=== PATIENT | female | born 1960 | race Caucasian/White ===

== ENCOUNTER 2020-01-07 02:46 | Observation (INO) | payer BC, SELFPAY ==
[2020-01-07] VITALS (11 sets, daily range): BP systolic 119–153; BP diastolic 52–84; PULSE 57–91; RESP 16–18; TEMP 36.6–36.9; O2SAT 94–99; BMI 38.7; BMI 40.1
--- NOTE | 2020-01-07 02:41 | ECG_ITS ---
APPROVED REPORT Exam: Resting ECG HR:90 bpm ECG Measurements Heart Rate 90 AXES IN 150 P 53 QRSd 88 QRS 36 QT 386 T 51 QTc 472 <Conclusion> Normal sinus rhythm Normal ECG Electronically signed by : Jonathon Arias, 01/08/2020 07:13:03
--- NOTE | 2020-01-07 02:56 | XR_ITS ---
PROCEDURE: XR CHEST 2V CLINICAL HISTORY: chest pain COMPARISON: CT ABDPELW/O CT ABD PELVIS W/O CONTRAST from 06/09/2013 FINDINGS: Unremarkable cardiovascular structures. There is increased density in the paraspinal region in the lower chest consistent with hernia. Calcified granuloma is present left upper lobe. The lungs are clear without infiltrates, suspicious nodules, or pleural effusions. No acute bony abnormalities. IMPRESSION: Suspect small hiatal hernia otherwise negative. Dictated by: Kahlil Santoro MD 01/07/2020 05:43 Kahlil Santoro MD in [place] 01/07/2020 05:43
[2020-01-07 03:05] LABS: Basophils % 0.4 % (0.1-2.0); Eosinophils # 0.1 K/mm3 (0.0-0.4); Eosinophils % 1.4 % (0.1-12.0); Hemoglobin 14.8 g/dL (12.2-16.2); Lymphocytes # 2.4 K/mm3 (0.7-4.5); Lymphocytes % 39.6 % (10-50); Mean Corpuscular HGB Conc 33.7 g/dL (31.8-35.4); Mean Corpuscular Hemoglobin 32.3 pg (27.0-31.2); Mean Corpuscular Volume 95.9 fl (81-99); Monocytes # 0.4 K/mm3 (0.1-1.0); Neutrophils # 3.2 K/mm3 (1.8-7.8); Neutrophils % 52.6 % (37.0-80.0); Platelet Count 273 K/mm3 (142-424); Red Blood Count 4.59 M/mm3 (4.20-5.40)
[2020-01-07 03:11] LABS: Chloride 102 mmol/L (98-107); Potassium 3.9 mmoL/L (3.5-5.1); Sodium 141 mmol/L (136-145)
[2020-01-07 03:14] LABS: Anion Gap 12.9 mEq/L (5-15); Blood Urea Nitrogen 20 mg/dl (7-17); Calcium 10.5 mg/dl (8.4-10.2); Carbon Dioxide 30 mmol/L (22.0-30.0); Creatinine Clearance Estimated 122 mL/min (50-200); Estimated Glomerular Filt Rate 74 ml/min (>60); GFR (African American) 89 ML/MIN (>60); Glucose 144 mg/dl (74-100)
[2020-01-07 03:37] LABS: Troponin I < 0.01 ng/ml (0.00-0.034)
--- NOTE | 2020-01-07 04:14 | HMH.EDCP ---
ED Disposition Clinical Impression: Obesity (BMI 30-39.9) Chest pain Qualifiers: Chest pain type: precordial pain Qualified Code(s): R07.2 - Precordial pain Disposition: Admitted as Observation Condition on Discharge: Good Referrals: PCP,No [Primary Care Provider] - - Critical Care Critical Care Time: No Attestation: On 01/07/20, the high probability of a clinically significant, sudden or life threatening deterioration of the following system(s) required my full and direct attention, intervention and personal management. The time I documented below is in addition to time spent performing reported procedures but includes the following listed in this critical care notation. Medical Decision Making - Medical Records Medical records reviewed: Yes: I reviewed the patient's medical records. - Hermes Inquiry Pt receiving controlled substance: No Vital Signs: 01/07/20 02:47 01/07/20 03:17 01/07/20 04:13 Temperature 98.2 F Temperature Source Oral Pulse Rate [Left Radial] 91 H 78 75 Respiratory Rate 17 16 Blood Pressure [Right Arm] 153/81 H 128/74 138/75 Blood Pressure Mean [Right Arm] 105 92 96 Blood Pressure Source [Right Arm] Automatic Cuff Automatic Cuff Automatic Cuff Blood Pressure Position [Right Arm] Sitting 02 Sat by Pulse Oximetry 97 94 L 95 Oxygen Delivery Method Room Air Room Air Room Air - Lab Data Lab results reviewed: Yes: I reviewed the patient's lab results. Lab Results 01/07/20 02:55: WBC 6.0, RBC 4.59, Hgb 14.8, Hct 44.0, MCV 95.9, MCH 32.3 H, MCHC 33.7, RDW 13.0, Plt Count 273, MPV 7.0 L, Neut % (Auto) 52.6, Lymph % (Auto) 39.6, [place] % (Auto) 6.0, Eos % (Auto) 1.4, Baso % (Auto) 0.4, Neut # (Auto) 3.2, Lymph # (Auto) 2.4, [place] # (Auto) 0.4, Eos # (Auto) 0.1, Baso # (Auto) 0.0 01/07/20 02:55: Sodium 141, Potassium 3.9, Chloride 102, Carbon Dioxide 30, Anion Gap 12.9, BUN 20 H, Creatinine 0.80, Estimated Creat Clear 122, Estimated GFR 74, Est GFR ( Amer) 89, Glucose 144 H, Calcium 10.5 H, Troponin I < 0.01 Result diagrams: 01/07/20 02:55 01/07/20 02:55 Orders (Tests/Meds): ED MEDICATIONS Generic Name Dose Route Start Last Admin Trade Name Freq PRN Reason Stop Dose Admin Sodium Chloride 1,000 mls @ 999 mls/hr 01/07/20 03:00 01/07/20 03:01 Sod Chlor 0.9% 1000ml Bag IV 01/07/20 04:00 999 mls/hr .Q1H1M LAKESHA Administration ORDERS Category Date Time Status XR chest 2V Stat Exams 01/07/20 02:56 Taken Coronavirus 19 Swab (OUTPT) Routine Lab 01/07/20 04:33 Ordered Troponin I Q3H Lab 01/07/20 06:00 Ordered Troponin I Q3H Lab 01/07/20 09:00 Ordered - Radiology Data #1 Image(s): Chest Image Reviewed: Yes I reviewed the patient's radiology image Preliminary Findings: Normal/NAD - ECG Data Tracing #1 Normal Sinus Rhythm: Yes Ischemic changes: non-specific ST-T wave changes - Physician Consults Physician Consulted: henna Reason -: Admission Chest Pain HPI - General Chief Complaint: Chest Pain Stated Complaint: chest pain Time Seen by Provider: 01/07/20 03:10 Mode of Arrival: Ambulatory Source of Information: Patient, Medical Record Limitations: No Limitations Description of Symptoms (Recalled from ER Triage Doc. by RN): pt stated he has had intermitten chest pain at her epigastric region that radiates to her left shoulder and causes a warm sensation that moves up her neck. pt stated her had a heart attack a couple months ago and she has had felt a lot of anxiety about it sense. pt deneis any chest pain at this time. - History of Present Illness HPI narrative: having episodes of chest pain over the last 3 days which are new and rad to neck at times - no known heart disease - MD complaint: chest pain indicative of cardiac Onset (ago): day(s) Duration: intermittent Activity at onset: during rest Pain location: substernal Severity: moderate Quality: tightness Pain radiation: neck Risk Factors for CAD: Family Hx of C
[2020-01-07 05:29] LABS: Chol/HDL Ratio 6.1 (1-3.5); Cholesterol 287 mg/dl (140-200); HDL Cholesterol 47 mg/dl (40-60); Triglycerides 134 mg/dl (30-150); VLDL Cholesterol 27 mg/dL (0-40)
[2020-01-07 05:40] LABS: Direct LDL Cholesterol 196.81 mg/dL (100-129)
[2020-01-07 07:09] LABS: Troponin I < 0.01 ng/ml (0.00-0.034)
--- NOTE | 2020-01-07 07:11 | PC.NURSE ---
called lab about pt COVID swab status. they stated itll be 10 minutes.
--- NOTE | 2020-01-07 07:40 | PC.NURSE ---
report called to floor
--- NOTE | 2020-01-07 07:48 | HMH.PHAVTE ---
[facility] Pharmacy VTE Monitoring - Patient Demographics Admission date: 01/06/20 Report Date: 01/07/20 Time: 07:48 Allergies/Adverse Reactions: Patient Allergies aspirin Allergy (Intermediate, Verified 01/07/20 02:59) Hives From AUGMENTIN Allergy (Intermediate, Uncoded 05/07/17 14:00) I-HIVES Height: 1.6 m Weight: 99.337 kg Patient Problems: Current Active Problems Chest pain (Acute) Obesity (BMI 30-39.9) (Acute) - VTE Risk Labs: VTE Related Lab Results Hgb 14.8 g/dL (12.2-16.2) 01/07/20 02:55 Hct 44.0 % (37.0-47.0) 01/07/20 02:55 Plt Count 273 K/mm3 (142-424) 01/07/20 02:55 BUN 20 mg/dl (7-17) H 01/07/20 02:55 Creatinine 0.80 mg/dl (0.52-1.04) 01/07/20 02:55 Estimated Creat Clear 122 mL/min (50-200) 01/07/20 02:55 Clinical Trial Participant: No - Prophylaxis VTE Prophylaxis Ordered?: Yes Types of VTE Prophylaxis: TEDS Knee High
--- NOTE | 2020-01-07 08:00 | CA_ITS ---
APPROVED REPORT EXAM: Comprehensive 2D, Doppler, and color-flow Echocardiogram Syrup Maker: Mahsa Flowers RDCS Ht: 5 ft 3 in Wt: 219lbs BSA: 2.01 BP: 120/73 mmHg Indications: CP 2D Dimensions LVOT 1.68 cm (M/F) 1.5-2.5 M-Mode Dimensions RVDd 3.01 cm (0.9-2.6) LVDd 4.50 cm (3.5-5.7) LVDs 2.97 cm (3.5-5.7) IVSd 1.15 cm (0.6-1.1) PWd 0.72 cm (0.6-1.1) EF (Teich) 63.00% FS 34.00% EDV (Teich) 92.40 mL ESV (Teich) 34.20 mL LV Diastology E/A Ratio 0.61 Mitral Valve MV A Velocity 70.00 (40-130 cm/s) Left Ventricle Left atrium is mildly enlarged, left ventricle is normal size, left ventricle wall thickness is upper limit of normal, there is preserved left ventricular systolic function, visually estimated ejection fraction 55% with no regional wall motion abnormality, grade 1 diastolic dysfunction seen without tissue Doppler evidence of raise left atrial pressure. Right Ventricle Right atrium is normal size, right ventricle is mildly enlarged with normal contractility. Aortic Valve Aortic valve is minimally thickened and fibrosed, there is no aortic stenosis, there is mild aortic insufficiency. Mitral Valve Mitral valve is grossly normal, there is mild mitral regurgitation. Tricuspid Valve Tricuspid valve grossly normal, there is mild tricuspid regurgitation, tricuspid regurgitation jet velocity is inadequate for calculation of the right ventricular systolic pressure. Pulmonic Valve Pulmonic valve is poorly visualized. Great Vessels Aortic root is normal size. Pericardium No significant pericardial effusion noted. Conclusion 1. Mildly enlarged left atrium, normal left ventricular size, preserved left ventricular systolic function, visually estimated ejection fraction 55% with no regional wall motion abnormality, grade 1 diastolic dysfunction seen without tissue Doppler evidence of raise left atrial pressure. 2. Mildly enlarged right ventricle with normal contractility. 3. Mild aortic, mild mitral and tricuspid regurgitation. 4. No significant pericardial effusion noted. Electronically signed by : Bernabe Gong, 01/07/2020 11:14:12
--- NOTE | 2020-01-07 08:05 | PC.NURSE ---
Pt arrived to the floor at this time
--- NOTE | 2020-01-07 08:55 | HMH.CNCARD ---
History of Present Illness Consult date: 01/07/20 Requesting physician: Mariella Dao Chief complaint: chest pain Additional Medical History:: 1. Reported allergy to amoxicillin, full-strength aspirin and clavulanic acid. Patient relates hives with each but is able to take a baby aspirin. History of present illness: 59-year-old white female admitted for abdominal and chest discomfort over the last couple of weeks. Patient describes it as a upper abdominal discomfort worse after eating or drinking something carbonated which had prompted her to discontinue coffee and all caffeinated products a week ago with mild improvement. Yesterday symptoms onset and last for 3 to 4 hours before being encouraged by her spouse to come to the ER for evaluation. Patient did receive some improvement in symptoms with nitroglycerin. She did not receive a GI cocktail. Initial EKG showed sinus rhythm with no ST segment changes. Initial troponin was normal and subsequent troponins have returned normal overnight despite continued chest discomfort. Patient does complain of a headache this morning. Preliminary echocardiogram shows preserved ejection fraction with no significant valvular heart disease. Patient is a non-smoker, nondiabetic and does not take any medication for hypertension or hyperlipidemia. There is no family history of early heart disease. [facility] History Medical History: Denies:: Cancer, Diabetes Mellitus Type 1, Diabetes Mellitus Type 2, MRSA *Have you ever received a pneumonia vaccine?: No *Have you received a flu vaccine this season?: No (n/a) Amputation: No - *Social History Last grade of school completed: Advanced degree Smoking Status: Never smoker Alcohol Intake: current Alcohol Intake Frequency:: holidays/special occasions only *Occupational Status:: employed Housing: house Household Members: spouse, family, children *Travel in the last 8 weeks: None Family Hx:: no No significant family history Meds Home Medications Medication Instructions Recorded Confirmed Type No Known Home Medications 01/07/20 01/07/20 History Allergies Allergy/AdvReac Type Severity Reaction Status Date / Time amoxicillin [From Augmentin] Allergy Intermediate Hives Verified 01/07/20 07:56 aspirin Allergy Intermediate Hives Verified 01/07/20 02:59 clavulanic acid Allergy Intermediate Hives Verified 01/07/20 07:56 [From Augmentin] Exam Vital signs and Labs for Last 24 Hours: Temp Pulse Resp BP Pulse Ox 97.9 F 74 18 129/70 95 01/07/20 08:37 01/07/20 08:37 01/07/20 08:37 01/07/20 08:37 01/07/20 08:37 Laboratory Results - last 24 hr 01/07/20 02:55: WBC 6.0, RBC 4.59, Hgb 14.8, Hct 44.0, MCV 95.9, MCH 32.3 H, MCHC 33.7, RDW 13.0, Plt Count 273, MPV 7.0 L, Neut % (Auto) 52.6, Lymph % (Auto) 39.6, [place] % (Auto) 6.0, Eos % (Auto) 1.4, Baso % (Auto) 0.4, Neut # (Auto) 3.2, Lymph # (Auto) 2.4, [place] # (Auto) 0.4, Eos # (Auto) 0.1, Baso # (Auto) 0.0 01/07/20 02:55: Sodium 141, Potassium 3.9, Chloride 102, Carbon Dioxide 30, Anion Gap 12.9, BUN 20 H, Creatinine 0.80, Estimated Creat Clear 122, Estimated GFR 74, Est GFR ( Amer) 89, Glucose 144 H, Calcium 10.5 H, Troponin I < 0.01 01/07/20 02:55: Triglycerides 134, Cholesterol 287 H, LDL Cholesterol Direct 196.81 H, VLDL Cholesterol 27, HDL Cholesterol 47, Cholesterol/HDL Ratio 6.1 H 01/07/20 06:30: Troponin I < 0.01 I & O for Last 24 hours: Intake & Output 01/04/20 01/05/20 01/06/20 01/07/20 11:59 11:59 11:59 11:59 Weight 226 lb 5 oz Microbiology Reports for the Last 24 Hours: Microbiology 01/07/20 05:10 Nasopharyngeal Coronavirus COVID-19 PCR - Final - *Routine HEENT Exam Head: Present: normocephalic Eye: Present: EOMI, PERRL ENT: Present: mucous membranes moist - *Routine Respiratory Exam Present: CTA bilaterally - *Routine Cardiovascular Exam Present: RRR - *Routine Abdominal Exam Present: soft, normoactive bowel sounds. Absent: ten
[2020-01-07 09:36] LABS: Troponin I < 0.01 ng/ml (0.00-0.034)
--- NOTE | 2020-01-07 10:45 | US_ITS ---
PROCEDURE: US GALLBLADDER CLINICAL INDICATION: epigastric pain COMPARISON: No exams were available for comparison FINDINGS: Pancreas: Unremarkable/Not well seen Liver: Unremarkable. There is appropriate direction of blood flow within a non dilated portal vein. Right kidney: Unremarkable appearing. No hydronephrosis. Gallbladder: No stones are evident. There is no gallbladder wall thickening. Common duct is normal in diameter. IMPRESSION: Negative gallbladder ultrasound. No stones evident. Dictated by: Kahlil Santoro MD 01/07/2020 12:27 Kahlil Santoro MD in [place] 01/07/2020 12:27
--- NOTE | 2020-01-07 10:47 | HMH.ACPN2 ---
Internal Medicine - PN: Subj *Date: 01/07/20 *Time: 10:47 Interval history: See cardiology evaluation. I agree with the assessment that it is likely GI. Symptoms seem to be food related. Pain was in epigastrium and toward the left side but up into the neck as well. She has had some history in the past of heartburn and acid indigestion. She has no family history risk factors. She does not smoke. She occasionally takes an alcoholic beverage, especially wine or beer. Exam Vital signs and Labs for Last 24 Hours: Temp Pulse Resp BP Pulse Ox 97.9 F 74 18 129/70 95 01/07/20 08:37 01/07/20 08:37 01/07/20 08:37 01/07/20 08:37 01/07/20 08:37 Laboratory Results - last 24 hr 01/07/20 02:55: WBC 6.0, RBC 4.59, Hgb 14.8, Hct 44.0, MCV 95.9, MCH 32.3 H, MCHC 33.7, RDW 13.0, Plt Count 273, MPV 7.0 L, Neut % (Auto) 52.6, Lymph % (Auto) 39.6, [place] % (Auto) 6.0, Eos % (Auto) 1.4, Baso % (Auto) 0.4, Neut # (Auto) 3.2, Lymph # (Auto) 2.4, [place] # (Auto) 0.4, Eos # (Auto) 0.1, Baso # (Auto) 0.0 01/07/20 02:55: Sodium 141, Potassium 3.9, Chloride 102, Carbon Dioxide 30, Anion Gap 12.9, BUN 20 H, Creatinine 0.80, Estimated Creat Clear 122, Estimated GFR 74, Est GFR ( Amer) 89, Glucose 144 H, Calcium 10.5 H, Troponin I < 0.01 01/07/20 02:55: Triglycerides 134, Cholesterol 287 H, LDL Cholesterol Direct 196.81 H, VLDL Cholesterol 27, HDL Cholesterol 47, Cholesterol/HDL Ratio 6.1 H 01/07/20 06:30: Troponin I < 0.01 01/07/20 09:00: Troponin I < 0.01 I & O for Last 24 hours: Intake & Output 01/04/20 01/05/20 01/06/20 01/07/20 11:59 11:59 11:59 11:59 Intake Total 360 / 360 Balance 360 / 360 Weight 226 lb 5 oz Microbiology Reports for the Last 24 Hours: Microbiology 01/07/20 05:10 Nasopharyngeal Coronavirus COVID-19 PCR - Final - Constitutional no acute distress - *Routine HEENT Exam Head: Present: normocephalic Eye: Present: PERRL - *Routine Neck Exam Absent: JVD, carotid bruit, thyromegaly - Routine Chest/Breast/Axilla Exam Chest wall: Absent: tenderness - *Routine Respiratory Exam Present: CTA bilaterally (Except a few subtle right basilar rales.) - *Routine Cardiovascular Exam Present: RRR - *Routine Abdominal Exam Present: soft. Absent: tenderness - *Routine Extremities Exam Absent: edema - *Routine Neurological Exam Present: alert, oriented X3 Assessment and Plan (1) Chest pain Current visit: Yes Status: Acute Qualifiers: Chest pain type: precordial pain Qualified Code(s): R07.2 - Precordial pain Category: Medical Code(s): R07.9 - Chest pain, unspecified (2) Obesity (BMI 30-39.9) Current visit: Yes Status: Acute Category: Medical Code(s): E66.9 - Obesity, unspecified (3) Epigastric pain Current visit: Yes Status: Acute Category: Medical Code(s): R10.13 - Epigastric pain
--- NOTE | 2020-01-07 11:10 | PC.NURSE ---
PATIENT TRANSPORTED TO ULTRASOUND PER US TECH
--- NOTE | 2020-01-07 11:31 | PC.NURSE ---
PATIENT RETURNED TO FLOOR FROM US
--- NOTE | 2020-01-07 13:10 | HMH.HPDC ---
General - General Admission date:: 01/07/20 Discharge date: 01/07/20 *Admission Date: 01/06/20 *Chief complaint: chest and upper abdominal pain *History of present illness: Ms. Don is a 59-year-old white female admitted for abdominal and chest discomfort over the last couple of weeks. Patient describes it as a upper abdominal discomfort worse after eating or drinking something carbonated which had prompted her to discontinue coffee and all caffeinated products a week ago with mild improvement. Yesterday symptoms onset and last for 3 to 4 hours before being encouraged by her spouse to come to the ER for evaluation. Patient did receive some improvement in symptoms with nitroglycerin. She did not receive a GI cocktail. Initial EKG showed sinus rhythm with no ST segment changes. Initial troponin was normal and subsequent troponins have returned normal overnight despite continued chest discomfort. Patient does complain of a headache this morning. Preliminary echocardiogram shows preserved ejection fraction with no significant valvular heart disease. Patient is a non-smoker, nondiabetic and does not take any medication for hypertension or hyperlipidemia. There is no family history of early heart disease. (the above as per Juvenal Lemus) [facility] History I have reviewed the patient's past medical history: Yes Medical History: Denies:: Cancer, Coronary Artery Disease, Diabetes Mellitus Type 1, Diabetes Mellitus Type 2, Hyperlipidemia, Hypertension, MRSA *Have you ever received a pneumonia vaccine?: No *Have you received a flu vaccine this season?: No (n/a) Other Surgeries: Yes: Amputation: No - *Social History Last grade of school completed: Advanced degree Smoking Status: Never smoker Alcohol Intake: current Alcohol Intake Frequency:: holidays/special occasions only *Occupational Status:: employed Housing: house Household Members: spouse, family, children *Travel in the last 8 weeks: None Family Hx:: No significant family history, Hypertension Review of Systems - Constitutional Denies chills, Denies fever(s), Denies weakness - Eyes Denies blurry vision, Denies double vision - ENT Denies nasal congestion, Denies sore throat, Denies dizziness - *Cardiovascular Reports chest pain, Denies shortness of breath, Denies rapid, pounding, or irregular heartbeat - *Respiratory Denies chest congestion, Denies cough - *Gastrointestinal Reports abdominal pain (epigastric), Reports heartburn, Denies loose stools, Denies nausea, Denies vomiting - *Genitourinary Denies difficulty urinating, Denies painful urination - *Musculoskeletal Denies joint pain - *Neurologic Reports headache(s), Denies confusion, Denies localized weakness, Denies seizure-like activity, Denies weakness Exam Vital signs and Labs for Last 24 Hours: Temp Pulse Resp BP Pulse Ox 98.5 F 57 L 18 121/52 L 97 01/07/20 11:29 01/07/20 11:29 01/07/20 11:29 01/07/20 11:29 01/07/20 11:29 Laboratory Results - last 24 hr 01/07/20 02:55: WBC 6.0, RBC 4.59, Hgb 14.8, Hct 44.0, MCV 95.9, MCH 32.3 H, MCHC 33.7, RDW 13.0, Plt Count 273, MPV 7.0 L, Neut % (Auto) 52.6, Lymph % (Auto) 39.6, [place] % (Auto) 6.0, Eos % (Auto) 1.4, Baso % (Auto) 0.4, Neut # (Auto) 3.2, Lymph # (Auto) 2.4, [place] # (Auto) 0.4, Eos # (Auto) 0.1, Baso # (Auto) 0.0 01/07/20 02:55: Sodium 141, Potassium 3.9, Chloride 102, Carbon Dioxide 30, Anion Gap 12.9, BUN 20 H, Creatinine 0.80, Estimated Creat Clear 122, Estimated GFR 74, Est GFR ( Amer) 89, Glucose 144 H, Calcium 10.5 H, Troponin I < 0.01 01/07/20 02:55: Triglycerides 134, Cholesterol 287 H, LDL Cholesterol Direct 196.81 H, VLDL Cholesterol 27, HDL Cholesterol 47, Cholesterol/HDL Ratio 6.1 H 01/07/20 06:30: Troponin I < 0.01 01/07/20 09:00: Troponin I < 0.01 I & O for Last 24 hours: Intake & Output 01/05/20 01/06/20 01/07/20 01/08/20 11:59 11:59 11:59 11:59 Intake Total 360 / 360 Balance 360 / 360 Scottg
--- NOTE | 2020-01-07 13:22 | HMH.PHAINT ---
DISCHARGE COUNSELING COMPLETED ON PATIENT. NEW PRESCRIPTIONS FOR ASPIRIN 81MG AND PRILOSEC. BOTH PRESCRIPTIONS WERE SENT TO [facility]. PATIENT CURRENTLY DOES NOT TAKE ANY MEDICATIONS AT HOME. NO QUESTIONS AT THIS TIME AND VERBALIZED UNDERSTANDING. -PINKY MADRIGAL, LANED
--- NOTE | 2020-01-07 13:35 | PC.NURSE ---
PATIENT IV REMOVED FOR DISCHARGE. PATIENT DISCHARGE INSTRUCTIONS GIVEN. NO QUESTIONS. PATIENT ASSISTED TO FRONT ENTRANCE WITH STAFF.
== END 2020-01-07 13:41 | disposition home or self-care (01) ==
LOC: ER 04:47 → 2ND 04:56
PROVIDERS: Admitting Provider Family Medicine; Emergency Provider Emergency Medicine; Visit Provider Family Medicine
DX: R07.2 Precordial pain (principal); R10.13 Epigastric pain; Z88.8 Allergy status to other drugs, medicaments and biological substances; Z88.1 Allergy status to other antibiotic agents
CPT/HCPCS: 36415; 71046; 76705; 80048; 80061; 84484; 85025; 93005; 93306; 96365; 99285; G0378; U0003

== ENCOUNTER 2023-11-25 11:28 | Outpatient (CLI) | payer BC, SELFPAY | END 2023-11-25 23:59 | disposition home or self-care (01) | LOC: LAB.DROPOF 11-26 11:29 | PROVIDERS: PCP Student in an Organized Health Care Education/Training Program; Visit Provider Student in an Organized Health Care Education/Training Program | DX: J02.9 Acute pharyngitis, unspecified (principal) | CPT/HCPCS: 87070; 87077; 87186 ==